=== PATIENT | female | born 1990 | race African-American/Black ===

== ENCOUNTER 2017-09-13 08:43 | Emergency (ER) | payer BC, MEDICAID ==
[~2017-09-13] VITALS: Ht 170.2 cm; Wt 54.4 kg
[2017-09-13] MEDS ORDERED: THERAFLU (08:57)
[2017-09-13] MEDS ORDERED: ONDANSETRON 4 MG/2 ML VIAL IV ONE (09:15)
[2017-09-13] MEDS ORDERED: IV NORMAL SALINE 1000 ML BAG IV ONE (09:15)
[2017-09-13 10:02] LABS: *BILIRUBIN,URIN NEGATIVE (NEGATIVE); *BLOOD, URINE 2+ (NEGATIVE); *CLARITY,URINE CLEAR (CLEAR); *COLOR,URINE YELLOW (YELLOW); *KETONES,URINE NEGATIVE (NEGATIVE); *PROTEIN,URINE NEGATIVE (NEGATIVE); *UROBILINOGEN,URINE 0.2 E.U./dl (NORMAL); LEUKOCYTE ESTERASE ,URINE NEGATIVE (NEGATIVE); NITRITE, URINE NEGATIVE (NEGATIVE); UGLUCOSE NEGATIVE (NEGATIVE)
[2017-09-13 10:05] LABS: BACTERIA,URINE FEW /HPF (NONE SEEN); SQUAMOUS EPITHELIAL CELL,UR MODERATE /HPF (NONE SEEN)
[2017-09-13] MEDS ORDERED: ONDANSETRON 4 MG/2 ML VIAL ONE (10:11)
[2017-09-13 10:15] LABS: BASOPHILS % (AUTO) 0.2 % (0.0-2.0); HEMATOCRIT 41.9 % (31.2-41.9); HEMOGLOBIN 14.5 g/dL (10.9-14.3); LYMPHOCYTES # (AUTO) 0.6 K/uL (20.0-40.0); LYMPHOCYTES % (AUTO) 5.2 % (20.5-51.5); MEAN CORPUSCULAR HEMOGLOBIN 32.6 uug (24.7-32.8); MEAN CORPUSCULAR HGB CONC 35 g/dL (32.3-35.6); MEAN CORPUSCULAR VOLUME 93.7 fL (75.5-95.3); MONOCYTES # (AUTO) 0.7 K/uL (2.0-10.0); MONOCYTES % (AUTO) 5.9 % (0.0-11.0); NEUTROPHILS # (AUTO) 9.9 K/uL (1.8-8.9); NEUTROPHILS % (AUTO) 88.7 % (38.5-71.5); PLATELET COUNT (AUTO) 240 K/uL (179-408); RED BLOOD CELL COUNT(AUTO) 4.47 MIL/uL (3.63-4.92); WHITE BLOOD COUNT (AUTO) 11.1 K/uL (3.8-11.8)
[2017-09-13 10:24] LABS: CREATININE 0.9 mg/dL (0.6-1.3); POTASSIUM 3.6 mmol/L (3.5-5.1)
[2017-09-13 10:29] LABS: BILIRUBIN,DIRECT 0.2 mg/dL (0.0-0.2); BILIRUBIN,TOTAL 0.6 mg/dL (0.2-1.0); TOTAL PROTEIN, SERUM 7.7 g/dL (6.4-8.2)
--- NOTE | 2017-09-13 10:55 | NUR ---
PT TOLERATED PO CHALLENGE. NO FURTHER VOMITING WITNESSED OR NAUSEA STATED. RADIOLOGY AT BEDSIDE.
[2017-09-13 12:16] VITALS: BP 104/60
--- NOTE | 2017-09-13 12:20 | NUR ---
Per MD, patient is stable for discharged to home. Pt ambulated unassisted with steady gait. Written and verbal after care instructions given. Patient and mother verbalizes understanding of instructions.
== END 2017-09-13 12:16 | disposition home or self-care (01) ==
LOC: ER 08:43
DX: G89.29 Other chronic pain (principal); R10.13 Epigastric pain; M54.5 Low back pain; R11.2 Nausea with vomiting, unspecified
CPT/HCPCS: 36415; 72100; 80048; 80076; 81001; 83690; 84703; 85025; 96361; 96374; 99285; J2405; J7030

== ENCOUNTER 2019-03-05 20:42 | Emergency (ER) | payer MEDICARE, MEDICAID ==
[~2019-03-05] VITALS: Ht 170.2 cm; Wt 53.5 kg
[~2019-03-05 20:42] MED LIST: THERAFLU
[2019-03-05] MEDS ORDERED: CEFTRIAXONE 500 MG VIAL IM ONE (21:30)
[2019-03-05] MEDS ORDERED: FLUCONAZOLE 100 MG TABLET PO ONE (21:30)
[2019-03-05] MEDS ORDERED: CEFTRIAXONE 500 MG VIAL ONE (21:35)
[2019-03-05] MEDS ORDERED: LIDOCAINE HCL 1% 20 ML VIAL ONE (21:35)
[2019-03-05] MEDS ORDERED: FLUCONAZOLE 100 MG TABLET ONE (21:35)
--- NOTE | 2019-03-05 21:40 | NUR ---
Patient discharged to home in stable conditon. Written and verbal after care instructions given. Patient verbalizes understanding of instructions. WALKED OUT OF ER WITH NO DISTRESS NOTED
[2019-03-05 21:41] VITALS: BP 105/77
== END 2019-03-05 21:42 | disposition home or self-care (01) ==
LOC: ER 20:44
DX: B37.3 Candidiasis of vulva and vagina (principal); K21.9 Gastro-esophageal reflux disease without esophagitis; Z79.899 Other long term (current) drug therapy
CPT/HCPCS: 96372; 99283; J0696; J3490; A4663